=== PATIENT | female | born 1975 | race African-American/Black ===

== ENCOUNTER 2019-09-23 13:24 | Outpatient (CLI) | payer OTHER | END 2019-09-23 13:25 | disposition home or self-care (01) | LOC: DTY/OP 13:24 | PROVIDERS: ATTEND Specialist | DX: Z01.818 Encounter for other preprocedural examination (principal); E66.01 Morbid (severe) obesity due to excess calories | CPT/HCPCS: 97802 ==

== ENCOUNTER 2020-09-23 12:45 | Observation (INO) | payer OTHER ==
--- NOTE | 2020-09-26 13:38 | HP ---
ADDENDUM: Addendum to [facility] #[id number] dictation 07/24/2019, #[id number] dictation on last seen 06/16/2020. HISTORY: Morelia Bray, 45-year-old female, seen August 2019, dictation #[id number] and again on June 16, 2020, dictation #[id number], presents for an elective sleeve gastrectomy. She lives in [place], [place]. She is a 45-year-old black female working with the [employer] to have bariatric surgery. When I saw her on June 16, she was 385 pounds, 56 BMI. Today 385 pounds, 56 BMI, 5 foot 9 inches. She has gone on vacation and gained what weight she had lost back again. She has seen our manager operations and procurement and psychologist, felt to be a good candidate. Preoperative laboratory screening reveals low vitamin D and folate, which she is taking vitamins to replace. She has comorbidities of sleep apnea, which she has had a sleep study but did not have financial resources to obtain a CPAP. She has arthralgias, borderline hypertension, and does not have significant GERD. In August 2019, she was 406 pounds, 60 BMI, and lost weight to where she is today. She is felt to be a good candidate for sleeve gastrectomy. She understands the risks and benefits, infection, bleeding, reoperation, leakage, complications, and consents. She is willing to be compliant and adhere to postoperative followup to maximize success. MEDICATIONS: None currently. PAST MEDICAL HISTORY: Arthritis; allergies; hypertension; sleep apnea; borderline hypertension; vitamin D and folate deficiencies, on replacement. PAST SURGICAL HISTORY: Hysterectomy. TOBACCO: None. ALCOHOL: None. REVIEW OF SYSTEMS: Noncontributory. FAMILY HISTORY: Noncontributory. PHYSICAL EXAMINATION: VITAL SIGNS: Height 5 foot 9 inches, 385 pounds, 56 BMI, 153/74, 85, 97.3 degrees. HEAD, EARS, EYES, NOSE AND THROAT: Unremarkable. LUNGS: Clear to auscultation. CARDIAC: Regular rate and rhythm without murmur or gallop. ABDOMEN: Soft, obese, nontender. EXTREMITIES: Unremarkable. ASSESSMENT AND PLAN: Morbid obesity, initially seen 406 pounds, 60 BMI, currently 385 pounds, 56 BMI with comorbidities of sleep apnea, hypertension, arthralgias. She understands risks and benefits, consents for laparoscopic sleeve gastrectomy. Job ID: [id number]
[2020-09-28] MEDS ORDERED: Bupivacaine 0.25% HCL 30 ML VIAL ONE (08:31)
[2020-09-28] MEDS ORDERED: Lidocaine 1% w/Epinephrine 1:100K 20 ML VIAL ONE (08:31)
[2020-09-28] MEDS ORDERED: Scopolamine 1.5 mg/72 hour Patch ONE (08:43)
[2020-09-28] MEDS ORDERED: cefOXitin Sodium/Dextrose 2 GM/50 ML BAG ONE (08:43)
[2020-09-28] MEDS ORDERED: Acetaminophen 500 MG TAB ONE (08:43)
[2020-09-28] MEDS ORDERED: Ketorolac Tromethamine 30 MG/ML VIAL ONE ×3 (08:43→17:56)
[2020-09-28] MEDS ORDERED: Heparin 5,000 UNITS/ML VIAL ONE (08:43)
[2020-09-28] MEDS ORDERED: Fentanyl 250 MCG/5 ML VIAL ONE (08:54)
[2020-09-28] MEDS ORDERED: SUGAMMADEX SODIUM 500 MG/5 ML VIAL ONE (08:54)
[2020-09-28] MEDS ORDERED: hydrALAZINE 20 MG/ML VIAL SLOW IVP PRN (09:01)
[2020-09-28] MEDS ORDERED: Ondansetron PF 4 MG/2 ML Vial IVP PRN (09:01)
[2020-09-28] MEDS ORDERED: diphenhydrAMINE 50 MG/ML VIAL IVP PRN (09:01)
[2020-09-28] MEDS ORDERED: Morphine 2 MG/ML VIAL SLOW IVP PRN (09:01)
[2020-09-28] MEDS ORDERED: Hydrocodone-Acetamin 15 ML UDCUP PO PRN (09:01)
[2020-09-28] MEDS ORDERED: Acetaminophen 500 MG TAB PO PRN (09:04)
[2020-09-28] MEDS ORDERED: Ondansetron HCl/PF 4 MG/2 ML Vial IVP PRN (09:39)
[2020-09-28] MEDS ORDERED: Meperidine HCl/PF 25 MG/ML VIAL SLOW IVP PRN (09:39)
[2020-09-28] MEDS ORDERED: Promethazine HCl 25 MG/ML VIAL IM PRN (09:39)
[2020-09-28] MEDS ORDERED: Promethazine HCl 25 MG/ML VIAL SLOW IVP PRN (09:39)
[2020-09-28] MEDS ORDERED: PROPOFOL 200 MG/20 ML VIAL ONE (10:18)
[2020-09-28] MEDS ORDERED: Lidocaine 1% PF 5 ML VIAL ONE (10:18)
[2020-09-28] MEDS ORDERED: Dexamethasone 20 MG/5 ML VIAL ONE (10:18)
[2020-09-28] MEDS ORDERED: Ondansetron PF 4 MG/2 ML Vial ONE ×2 (10:18→17:54)
[2020-09-28] MEDS ORDERED: PHENYLEPHRINE-NS 100 MCG/ML 10 ML SYRINGE ONE (10:18)
[2020-09-28] MEDS ORDERED: Rocuronium Bromide 10 MG/ML (10ML VIAL) ONE (10:18)
[2020-09-28] MEDS ORDERED: Glycopyrrolate 0.2 MG/ML 5 ML SYRINGE ONE (10:18)
[2020-09-28] MEDS ORDERED: Promethazine HCl 25 MG/ML VIAL ONE (10:35)
[2020-09-28] MEDS ORDERED: Fentanyl 100 MCG/2 ML VIAL ONE ×3 (10:47→12:48)
[2020-09-28] MEDS ORDERED: hydrALAZINE 20 MG/ML VIAL ONE (11:18)
--- NOTE | 2020-09-28 11:29 | OP ---
DATE OF PROCEDURE: 09/28/2020 PREOPERATIVE DIAGNOSES: Morbid obesity, low vitamin D, sleep apnea symptoms having undergone sleep study, but not financially able have a CPAP, borderline hypertension, arthralgias, preoperative weight 406 pounds, BMI 60, initially seen preoperative 385 pounds, BMI 56. POSTOPERATIVE DIAGNOSES: Morbid obesity, low vitamin D, sleep apnea symptoms having undergone sleep study, but not financially able have a CPAP, borderline hypertension, arthralgias, preoperative weight 406 pounds, BMI 60, initially seen preoperative 385 pounds, BMI 56. PROCEDURE PERFORMED: Laparoscopic sleeve gastrectomy 36-Prydeinig bougie, staple line within 4 cm of pylorus, staple line reinforcement was used, completion upper endoscopy. ANESTHESIA: General, local of 0.5% Marcaine 30 mL mixed with 1% Xylocaine with epinephrine 20 mL total volume used. DESCRIPTION OF PROCEDURE: The patient was taken to the operating room, where under general anesthesia in reverse Trendelenburg, abdomen was prepared with ChloraPrep and draped in routine fashion. Local anesthetic was infiltrated in the skin and subcutaneous tissue about each port site. Supraumbilical, midline upper incision made and pneumoperitoneum to 15 mmHg was obtained with a Veress needle, replaced with a 5 port. Video laparoscope inserted. Bilateral far-lateral subcostal incision was made and a 5 port was placed. Bilateral upper abdominal midclavicular incision was made and a 15 port placed on the left and 12 port on the right. Subxiphoid incision made, an obturator 5 port placed. A Daniele liver retractor placed under the left lobe of the liver, reflecting it cephalad. Liver was bulky, but not fatty and looked good. Gastrocolic ligament taken down with the LigaSure, adjacent to the greater curvature of the stomach, up to the angle of His, identifying the left crura, keeping the spleen free of harm. This was cleared within 4 cm of the pylorus. Bougie 36-Prydeinig placed orally by Anesthesia, directed on the lesser curvature of the stomach, visualized laparoscopically and serial fires of the BRENDA [employer] stapler initially green, then gold, then serial blue loads with staple line reinforcement was used, completed the sleeve gastrectomy, taking care to avoid encroachment on the incisura and respecting the angle of His. Completion endoscopy performed noting patent sleeve with pylorus visualization and no bleeding. Esophagus was normal. Scope withdrawn. There was no leak. Sleeve gastrectomy removed through the 15 port and fascia approximated with [id number] suture of 0 Vicryl and GraNee needle. Good hemostasis was obtained along the staple line with clips. Good hemostasis noted. Generally, the abdominal cavity was unremarkable. Irrigant and pneumoperitoneum evacuated. All instruments were removed, and all skin incisions were approximated with subdermal 4-0 Monocryl and Wheatley glue applied. Job ID: [id number]
[2020-09-28] MEDS ORDERED: Morphine 4 MG/ML VIAL ONE ×4 (12:46→21:13)
[2020-09-28] MEDS ORDERED: Sodium Chloride 0.9% 10 ML ONE (17:54)
[2020-09-28] MEDS ORDERED: Enoxaparin Sodium 40 MG/0.4 ML SYRINGE SC SCH (21:00)
[2020-09-28] MEDS: Morphine 4 MG/ML VIAL SLOW IVP PRN (21:14)
[2020-09-28] MEDS: Ketorolac Tromethamine 30 MG/ML VIAL IVP SCH ×2 (22:13→23:29)
[2020-09-28] MEDS: Lactated Ringer's 1,000 ML IV SCH ×2 (22:13→22:14)
[2020-09-28 22:37] VITALS: BMI 54.9
[2020-09-29] MEDS: Lactated Ringer's 1,000 ML IV SCH ×2 (02:57→05:43)
[2020-09-29] MEDS: Morphine 4 MG/ML VIAL SLOW IVP PRN (04:08)
[2020-09-29 05:30] LABS: #Lymphocytes 1.6 thou/uL (1.20-3.40); #Monocytes 0.4 thou/uL (0.11-0.59); #Neutrophils 7.1 thou/uL (1.40-6.50); %Basophils 0.1 % (0.0-1.0); %Eosinophils 0.1 % (0.0-10.0); %Lymphocytes 17.3 % (21.0-51.0); %Monocytes 4.3 % (0.0-10.0); %Neutrophils 78.2 % (42.0-75.0); Hemoglobin 10.9 g/dL (12.0-16.0); Mean Corpuscular HGB CONC 32.8 g/dL (32.0-36.0); Mean Corpuscular Hemoglobin 31.9 pg (27.0-31.0); Mean Corpuscular Volume 97.4 fL (78.0-98.0); Mean Platelet Volume 10.1 fL (7.4-10.4); Platelet Count 189 thou/uL (130-400); RBC Distribution Width 11.6 % (11.5-14.5); Red Blood Cell (RBC) Count 3.41 mill/uL (4.20-5.40); White Blood Cell (WBC) Count 9.1 thou/uL (4.8-10.8)
[2020-09-29] MEDS: Ketorolac Tromethamine 30 MG/ML VIAL IVP SCH ×2 (05:40→12:01)
[2020-09-29 05:51] LABS: Anion Gap 11 mmol/L (10-20); BUN (Urea Nitrogen) 15 mg/dL (7.0-18.7); Calc. Creatinine Clearance 228 mL/min (70-130); Calcium 8.8 mg/dL (7.8-10.44); Carbon Dioxide 29 mmol/L (22-29); Chloride 99 mmol/L (98-107); Glucose 96 mg/dL (70-105); Potassium 3.7 mmol/L (3.5-5.1); Sodium 135 mmol/L (136-145)
[2020-09-29] MEDS ORDERED: Pantoprazole 40 MG VIAL IVP SCH (09:00)
--- NOTE | 2020-09-29 11:52 | DIS ---
DATE OF ADMISSION: 09/28/2020 DATE OF DISCHARGE: 09/29/2020 DISCHARGE DIAGNOSES: Morbid obesity. Preoperative weight 406 pounds, 60 BMI, initially seen just prior to her surgery 385 pounds, 56 BMI, on preoperative diet in preparation for surgery, comorbidities of sleep apnea, having had a sleep study but could not financially afford the CPAP, borderline hypertension, arthralgias, vitamin D deficiency. PROCEDURES: Laparoscopic sleeve gastrectomy over 36-Slovak bougie, staple line reinforcement was used, completion endoscopy, staple line within 4 cm of pylorus. HISTORY: This 45-year-old female, morbidly obese, presents undergoing our bariatric program. Workup including the seminar dietary counseling, underwent preoperative initiation of vitamin D deficiency correction and presents for the above-named surgery, postoperatively did well, convalesced and tolerated diet. She will be discharged home. Resume her preoperative medications losartan and Tylenol Extra Strength. She sent home with hydrocodone elixir use as needed, Tylenol otherwise. Bariatric liquids advance per protocol after a bariatric program. Follow up in my office in 2 to 3 weeks. No lifting restriction. Shower and bathe at any time. Job ID: [id number]
[2020-09-29 12:34] VITALS: BP 138/87; TEMP 97.9
[2020-09-30] MEDS ORDERED: Losartan 25 MG TAB PO SCH (09:00)
== END 2020-09-29 15:19 | disposition home or self-care (01) ==
LOC: INTOOBSV 09-28 07:49 → SURG A 09-28 07:49
PROVIDERS: ADMIT Specialist; ATTEND Specialist
PROC: 0DB64ZZ Excision of Stomach, Percutaneous Endoscopic Approach (ICD-10-PCS; principal; 2020-09-28)
DX: E66.01 Morbid (severe) obesity due to excess calories (principal); G47.33 Obstructive sleep apnea (adult) (pediatric); M19.90 Unspecified osteoarthritis, unspecified site; I10 Essential (primary) hypertension; E55.9 Vitamin D deficiency, unspecified; E53.8 Deficiency of other specified B group vitamins; Z68.43 Body mass index [BMI] 50.0-59.9, adult; Z79.899 Other long term (current) drug therapy; Z88.5 Allergy status to narcotic agent
CPT/HCPCS: 36415; 80048; 85025; 88307; 88312; 96372; 96374; 96375; 96376; C9113; G0378; J0360; J0694; J1100; J1644; J1650; J1885; J2270; J2405; J2550; J2704; J3010; S0020